=== PATIENT | female | born 1965 | race Caucasian/White ===

== ENCOUNTER 2017-08-08 14:30 | Emergency (ER) | payer OTHER ==
[~2017-08-08] VITALS: Ht 165.1 cm; Wt 89.4 kg
[~2017-08-08 14:30] MED LIST: AMITRIPTYLINE H25 M2 PO; ASPIRIN EC81 M1 PO; FLUOXETINE HCL40 M1 PO; GOLYTELY SOLU4000 ML PO; MECLIZINE HCL25 MG PO; MOBIC15 M1 PO; PERCOCET 5-3251 EACH PO; PREMARIN0.625 M1 PO; TEGRETOL200 M1 PO; TRANSDERM-SCOP1 EAC1 TD
--- NOTE | 2017-08-08 15:39 | CT SCAN REPORT ---
EXAMINATION: CT HEAD WITHOUT CONTRAST CT CERVICAL SPINE WITHOUT CONTRAST CLINICAL INFORMATION: Fall. Hit head. COMPARISON: CT head 04/27/2017 TECHNIQUE: Imaging was performed from the skull base to vertex without intravenous administration of contrast. In addition, helical noncontrast CT imaging was acquired through the cervical spine and source images were reviewed along with axial reconstructions and sagittal and coronal MPRs. DLP: 898.95 mGy-cm FINDINGS: HEAD: No intracranial mass, hemorrhage, or midline shift is visualized. The ventricles and sulci are age-appropriate. No extra-axial collections are identified. The paranasal sinuses and mastoid air cells are well aerated. CERVICAL SPINE: There is no evidence of acute cervical spine fracture. Vertebral bodies remain normal in height. Cervical vertebrae have normal alignment. There is multilevel degenerative spondylosis of the cervical spine with disc height narrowing and endplate spurs and facet joint arthrosis No pre- or paravertebral soft tissue abnormality is identified. Limited assessment of the lung apices is unremarkable. IMPRESSION: 1. No acute intracranial pathology. 2. No CT evidence of acute cervical spine fracture or traumatic subluxation
--- NOTE | 2017-08-08 17:08 | ED HEAD/FACIAL INJ COMPLAINT ---
History of Present Illness General Chief Complaint: Facial or Head Injury Stated Complaint: HEAD INJURY S/P FALL, SENT BY URGENT CARE FOR S Source: patient Exam Limitations: no limitations Vital Signs & Intake/Output Vital Signs & Intake/Output ED Intake and Output 08/09 0000 08/08 1200 Intake Total 0 Output Total Balance 0 Intake, Oral 0 Patient 197 lb Weight Weight Reported by Patient Measurement Method Allergies Coded Allergies: coconut (Severe, HIVES 04/24/17) pineapple (Severe, HIVES 04/24/17) Uncoded Allergies: peaches (Severe, HIVES 04/24/17) Reconcile Medications Amitriptyline HCl 25 MG TABLET 1 TAB PO QHS BIPOLAR (Reported) Aspirin (Ecotrin*) 81 MG TABLET.DR 1 TAB PO DAILY HEART/BLOOD (Reported) Carbamazepine (Tegretol) 200 MG TABLET 1.5 TAB PO BID BIPOLAR (Reported) Estrogenic Subst Conj (Premarin) 0.625 MG TABLET 1 TAB PO DAILY HRT (Reported ) Fluoxetine HCl 40 MG CAPSULE 1 CAP PO QAM MENTAL HEALTH (Reported) Meclizine HCl 25 MG TABLET 1 TAB PO TIDPRN PRN dizziness Scopolamine (Transderm-Scop) 1 MG/3 DAY PATCH.TD.3 1 PAT TD Q3D PRN dizziness Triage Note: PT TO ED FOR A HEAD CT S/P SLIPPING DOWN AN EMBANKMENT EARLIER THIS AM, NO LOC, NO N/V. BRUISING NOTED TO R SIDE OF ANTERIOR AND LATERAL NECK, SMALL LACS NOTED TO EAR WELL. Triage Nurses Notes Reviewed? yes Onset: Abrupt Severity: mild, moderate Severity Numbers: 6 Location: global Method of Injury: fall Loss of Consciousness: no loss of consciousness LMP (ages 10-50): unknown : No Patient currently breastfeeds: No HPI: 52 year old female with no medical hx presents for eval after a fall. pt was walking down a hill when she slipped and fell hitting her rt sdue head and rt neck on the ground, no loc. Patient is able to get up and ambulate after the fall. She reports mild headache and right lateral neck pain. The pain is worse with movement. No vomiting changes in vision. She does not take any blood thinners. No dizziness or lightheadedness. She is not taking any medicine for her pain. No back pain chest pain abdominal pain hip pain. She is walking without difficulty. (Andres Cao) Past History Travel History Traveled to [place] past 21 day No Medical History Any Pertinent Medical History? 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 No (Andres Cao) Review of Systems Review of Systems Constitutional: Reports: no symptoms. EENTM: Reports: no symptoms. Respiratory: Reports: no symptoms. Cardiovascular: Reports: no symptoms. GI: Reports: no symptoms. Genitourinary: Reports: no symptoms. Musculoskeletal: Reports: see HPI, muscle pain, muscle stiffness, neck pain. Skin: Reports: no symptoms. Neurological/Psychological: Reports: headache. Hematologic/Endocrine: Reports: no symptoms. Immunologic/Allergic: Reports: no symptoms. All Other Systems: Reviewed and Negative (Andres Cao) Physical Exam Physical Exam General Appearance: well developed/nourished, no apparent distress, alert, awake Head: atraumatic, normal appearance, there are no scalp hematomas abrasions or lacerations. No tenderness to palpation no crepitus. No cruz signs or raccoon eyes Eyes: Bilateral: normal appearance, PERRL, EOMI. Ears, Nose, Throat: normal pharynx, normal ENT inspection, hearing grossly normal Neck: supple, full range of motion, trachea midline, tender lateral, there are superficial abrasions to the right anterior lateral and posterior neck. No deep lacerations no active bleeding. The right-sided cervical paraspinous muscles and right-sided trapezius muscles tender to palpation. No bruising. Full range of motion of the neck is intact with pain. Respiratory: normal breath sounds, chest non-tender, no respiratory distress, lungs clear Cardiovascular: regular rate/rhythm, normal peripheral pulses Gastrointestinal: normal bowel sounds, soft, non-tender, no organomegaly Back: normal inspection, normal range of motion, no vertebral tenderness Extremities: normal inspection, normal range of motion, no edema Psychiatric: awake, alert, oriented x 3 Cranial Nerves: normal hearing, normal speech, PERRL Coordination/Gait: normal finger to nose, normal gait Motor/Sensory: no motor/sensory deficits Skin: intact, normal color, warm/dry Lymphatic: no anterior cervical cammie (Malik HUGHES,Andres) Progress Differential Diagnosis: c-spine injury, facial fracture, ICH, orbit fracture, skull fracture, contusion, abrasion, concussion, muscle spasm Plan of Care: Patient seen and evaluated. She has superficial abrasions to her neck. No loss of consciousness no blood thinners. No other injuries. She is walking without difficulty. Moving all extremities without difficulty. CT scan of the head and neck does not show any acute trauma. Patient will be treated with rest fluids Tylenol and ibuprofen. Advised her to avoid excessive physical activity. Discussed possibility of concussion. Follow-up with primary care doctor. The abrasions were cleaned and dressed with bacitracin and sterile dressings. Discussed wound care procedures. Patient appears well she agrees the plan. Diagnostic Imaging: Viewed by Me: CT Scan. Discussed w/RAD: CT Scan. Radiology Impression: PATIENT: CLOVER LAGOS PRESENT AGE: 52 PATIENT ACCOUNT NO: [id number] : 65 LOCATION: [facility] ORDERING PHYSICIAN: Alli HUGHES SERVICE DATE: 08/08/170 EXAM TYPE: CAT - CT CERV SPINE WO IV CONTRAST; CT HEAD WO IV CONTRAST EXAMINATION: CT HEAD WITHOUT CONTRAST CT CERVICAL SPINE WITHOUT CONTRAST CLINICAL INFORMATION: Fall. Hit head. COMPARISON : CT head 04/27/2017 TECHNIQUE: Imaging was performed from the skull base to vertex without intravenous administration of contrast. In addition, helical noncontrast CT imaging was acquired through the cervical spine and source images were reviewed along with axial reconstructions and sagittal and coronal MPRs. DLP: 898.95 mGy-cm FINDINGS: HEAD: No intracranial mass, hemorrhage, or midline shift is visualized. The ventricles and sulci are age-appropriate. No extra- axial collections are identified. The paranasal sinuses and mastoid air cells are well aerated. CERVICAL SPINE: There is no evidence of acute cervical spine fracture. Vertebral bodies remain normal in height. Cervical vertebrae have normal alignment. There is multilevel degenerative spondylosis of the cervical spine with disc height narrowing and endplate spurs and facet joint arthrosis No pre- or paravertebral soft tissue abnormality is identified. Limited assessment of the lung apices is unremarkable. IMPRESSION: 1. No acute intracranial pathology. 2. No CT evidence of acute cervical spine fracture or traumatic subluxation DICTATED BY: Louis Tillman MD DATE/TIME DICTATED:08/08/171526 FOOD AND BEVERAGE CONTROLLER:DARCY DATE/TIME TRANSCRIBED:08/08/171526 CONFIDENTIAL, DO NOT COPY WITHOUT APPROPRIATE AUTHORIZATION. <Electronically signed in Other Vendor System> (Andres Cao) Departure Departure Disposition: HOME OR SELF CARE Condition: Stable Clinical Impression Primary Impression: Minor head injury Qualifiers: Encounter type: initial encounter Qualified Code: S00.90XA - Unspecified superficial injury of unspecified part of head, initial encounter Referrals: Elly HARRIS,Alphonse Cotto (PCP/Family) Additional Instructions: REST, Avoid excessive physical activity. Keep the abrasions clean and dry. Use Tylenol and ibuprofen as needed for pain. Make a follow-up appointment with YOUr primary care doctor for this week. Monitor symptoms closely return with any concerns. Departure Forms: Customer Survey General Discharge Information (Andres Cao) PA/ARTIST AND REPERTOIRE MANAGER Co-Sign Statement Statement: ED Attending supervision documentation- [] I saw and evaluated the patient. I have also reviewed all the pertinent lab results and diagnostic results. I agree with the findings and the plan of care as documented in the PA's/ARTIST AND REPERTOIRE MANAGER's documentation. [X] I have reviewed the ED Record and agree with the PA's/ARTIST AND REPERTOIRE MANAGER's documentation. [] Additions or exceptions (if any) to the PAs/ARTIST AND REPERTOIRE MANAGER's note and plan are summarized below: [] (Iraida HARRIS,Alhponse Patel)
[2017-08-08 17:15] VITALS: BP 131/83
== END 2017-08-08 17:17 ==
LOC: ERH 14:30
DX: S09.90XA Unspecified injury of head, initial encounter (principal); W17.81XA Fall down embankment (hill), initial encounter; Y93.01 Activity, walking, marching and hiking; Y92.9 Unspecified place or not applicable